=== PATIENT | male | born 1970 | race Caucasian/White ===

== ENCOUNTER 2017-03-19 22:39 | Emergency (ER) | payer OTHER ==
[2017-03-19 22:49] VITALS: BP 118/85; BMI 27.3
[2017-03-19 22:58] VITALS: TEMP 98.5
[2017-03-19] MEDS ORDERED: VANCOMYCIN 1 GM in SODIUM CHLORIDE 250 ML IV STA (23:21)
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
== END 2017-03-20 00:45 | disposition home or self-care (01) ==
LOC: ED 22:39
DX: L02.414 Cutaneous abscess of left upper limb (principal); F17.210 Nicotine dependence, cigarettes, uncomplicated
CPT/HCPCS: 87070; 87186; 96365; 99283

== ENCOUNTER 2017-08-23 22:36 | Outpatient (CLI) ==
[2017-08-24 00:53] VITALS: BMI 21.2
== END 2017-08-23 22:37 | disposition left against medical advice (07) ==
LOC: AMBL 22:36
PROVIDERS: ATTEND Internal Medicine Geriatric Medicine
DX: S01.01XA Laceration without foreign body of scalp, initial encounter (principal); V49.9XXA Car occupant (driver) (passenger) injured in unspecified traffic accident, initial encounter

== ENCOUNTER 2017-08-24 00:39 | Emergency (ER) | payer OTHER ==
[2017-08-24 00:53] VITALS: BP 115/75; TEMP 97.5; BMI 21.2
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
[2017-08-24] MEDS: TORADOL IM STA (01:21)
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
== END 2017-08-24 01:41 | disposition home or self-care (01) ==
LOC: ED 00:39
DX: M54.17 Radiculopathy, lumbosacral region (principal); M79.604 Pain in right leg; V89.2XXA Person injured in unspecified motor-vehicle accident, traffic, initial encounter; F17.210 Nicotine dependence, cigarettes, uncomplicated
CPT/HCPCS: 96372; 99283